=== PATIENT | female | born 1980 | race Caucasian/White ===

== ENCOUNTER 2019-12-09 10:08 | Emergency (ER) | payer OTHER ==
[~2019-12-09] VITALS: Ht 162.6 cm; Wt 90.7 kg
[~2019-12-09 10:08] MED LIST: AMOX1TAB12 PO; ANAPROX275 MG PO; CIPRO750 MG PO; CLEOCIN 30300 MG/50 IV; DOLOGESIC CAPSU1 CAP PO; IBUPROFEN800 MG PO; MOBIC15 MG PO; PEPCID40 MG PO; PHENERGAN25 MG PO; PROVENTIL3 ML/2.5 M IH; TUSSIONEX PENNKI5 ML PO; ULTRAM50 MG PO
== END 2019-12-09 17:01 | disposition home or self-care (01) ==
LOC: ER 10:08
DX: B34.9 Viral infection, unspecified (principal)

== ENCOUNTER → 2022-08-31 | Emergency (ER) | payer OTHER ==
[~2022-08-31] VITALS: Ht 157.5 cm; Wt 90.7 kg
[~2022-08-31] MED LIST changes: +ADVIL
== END | disposition home or self-care (01) ==
LOC: ER 18:58
DX: S99.922A Unspecified injury of left foot, initial encounter (principal); W22.03XA Walked into furniture, initial encounter; Y93.01 Activity, walking, marching and hiking; Y92.013 Bedroom of single-family (private) house as the place of occurrence of the external cause; Y99.9 Unspecified external cause status

== ENCOUNTER 2024-01-24 13:28 | Emergency (ER) | payer OTHER ==
[~2024-01-24] VITALS: Ht 157.5 cm; Wt 92.1 kg
[2024-01-24] MEDS ORDERED: KETOROLAC TROMETHAMINE 30 MG VIAL IV ONE (16:45)
[2024-01-24 18:01] LABS: HEMATOCRIT 37.4 % (36.0-45.00); HEMOGLOBIN 12.7 g/dL (12.0-15.00); MEAN CELL VOLUME 86.6 fL (80.00-100.00); MEAN CORPUSCULAR HEMOGLOBIN 29.6 pg (27.00-32.0); MEAN CORPUSCULAR HGB CONC 34.1 g/dl (32.0-36.0); PLATELET COUNT 207 K/uL (150-450); RED BLOOD COUNT 4.31 M/uL (4.00-6.00); RED CELL DISTRIBUTION WIDTH 14.5 % (11.5-14.5)
[2024-01-24 18:02] LABS: PH,URINE 5.5 (5.0-8.0); URINE APPEARANCE Turbid; URINE BILIRRUBIN Negative (NEGATIVE); URINE BLOOD Negative; URINE COLOR Yellow; URINE GLUCOSE Negative (NEGATIVE); URINE LEUKOCYTE Large; URINE NITRATE Negative; URINE PROTEIN Trace (NEGATIVE); URINE UROBILINOGEN 0.2 E.U./dl
[2024-01-24 18:05] LABS: URINE WBC 1193.7 uL (0.0-23.2)
[2024-01-24 18:17] LABS: URINE BACTERIA > 9821.5 uL (0.0-1933); URINE EPITHELIAL CELLS > 201.7 uL (0.0-38.8)
[2024-01-24 18:18] LABS: URINE YEAST FEW /hpf
[2024-01-24 18:21] LABS: CALCIUM 9.1 mg/dL (8.5-10.1); CREATININE SERUM 0.88 mg/dL (0.55-1.02); GFR 69.8; POTASSIUM 3.8 mEq/L (3.5-5.1)
[2024-01-24] MEDS ORDERED: CEPHALEXIN500 MG PO (19:19)
[2024-01-24] MEDS ORDERED: DICLOFENAC SODI75 MG PO ×2 (19:19→19:21)
[2024-01-24] MEDS ORDERED: CEFTRIAXONE SODIUM 1,000 MG VIAL IM ONE (19:30)
== END 2024-01-24 20:21 | disposition home or self-care (01) ==
LOC: ER 13:28
PROVIDERS: Nurse Practitioner Family
DX: N39.0 Urinary tract infection, site not specified (principal); N83.202 Unspecified ovarian cyst, left side